=== PATIENT | male | born 1990 | race American Indian/Alaskan Native ===

== ENCOUNTER 2018-04-01 11:22 | Emergency (ER) | payer MEDICAID ==
[2018-04-01 11:32] VITALS: BP 109/68; PULSE 64; RESP 18; TEMP 98.1; O2SAT 100
[2018-04-01] MEDS ORDERED: Oxycodone/Acetaminophen 5/325 mg Tab PO STA (12:24)
[2018-04-01] MEDS ORDERED: Oxycodone/Acetaminophen 5/325 mg Tab ONE (12:35)
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
== END 2018-04-01 13:03 | disposition home or self-care (01) ==
LOC: EDSEX 11:22 → C.ER 11:22
DX: M54.6 Pain in thoracic spine (principal)